=== PATIENT | male | born 1970 | race Two or more races ===

== ENCOUNTER 2018-10-11 08:37 | Emergency (ER) | payer OTHER ==
[~2018-10-11] VITALS: Ht 172.7 cm; Wt 90.7 kg
[2018-10-11 08:50] VITALS: BP 168/95
[2018-10-11] MEDS ORDERED: DIPHTH,PERTUSS(ACELL),TET TOX 0.5 ML DISP.SYRIN. VAX IM ONE (09:00)
[2018-10-11] MEDS ORDERED: NEOMY/BACITR/POLYMYXIN OINT PACKET. TP ONE (09:00)
[2018-10-11] MEDS ORDERED: fentaNYL PF VIAL 100 MCG/2 ML VIAL IV ONE (09:00)
--- NOTE | 2018-10-11 09:13 | PHYS DOC ---
Past Medical History Past Medical History: No Pertinent History Past Surgical History: Other Additional Past Surgical Histo: BACK Alcohol Use: Rarely Drug Use: None Adult General Chief Complaint Chief Complaint: LOWEREXTREMITY INJURY HPI HPI Patient is a 48 year old male who presents after sustaining any injury while at work prior to arrival. Patient states that a 2000 pound palate tipped over around eight o'clock this morning, hitting his lower back which caused him to fall forward and hit his face on another nearby palate. Patient states that the palate landed on his right lower extremity. Patient is complaining of nasal, right ankle, right knee, and right lower back pain since the injury occurred. Patient reports mild nausea but denies any vomiting. Denies loss of consciousness. Patient denies being on any anticoagulants. Tetanus status is not up to date. Patient states that he is able to bear weight on his right lower extremity but it is painful. Denies any other complaints. Review of Systems Review of Systems Constitutional: Denies fever or chills Eyes: Denies change in visual acuity or eye pain HENT: Denies nasal congestion or sore throat Respiratory: Denies cough or shortness of breath Cardiovascular: Denies chest pain or palpitations GI: Denies abdominal pain, vomiting, or diarrhea : Denies dysuria or hematuria Musculoskeletal: Denies joint pain. Reports back pain. Integument: Denies rash or skin lesions Neurologic: Denies focal weakness or sensory changes Complete systems were reviewed and found to be within normal limits, except as documented in this note. Current Medications Current Medications Current Medications Medications (Trade) Dose Ordered Sig/Kathie Start Time Stop Time Status Last Admin Dose Admin Diphtheria/ Tetanus/Acell Pertussis (Boostrix) 0.5 ml ONCE ONCE 10/11/18 09:00 10/11/18 09:03 DC 10/11/18 09:15 0.5 ML Fentanyl Citrate (Fentanyl 2ml Vial) 50 mcg 1X ONCE 10/11/18 09:00 10/11/18 09:04 DC 10/11/18 09:14 50 MCG Neomycin/ Polymyxin/ Bacitracin (Triple Antibiotic Ointment) 1 pkt 1X ONCE 10/11/18 09:00 10/11/18 09:04 DC 10/11/18 09:14 1 PKT Allergies Allergies Allergies Coded Allergies Type Severity Reaction Last Updated Verified No Known Drug Allergies 4/17/19 No Physical Exam Physical Exam Constitutional: Well developed, well nourished, no acute distress. HENT: Normocephalic, atraumatic, bilateral external ears normal, oropharynx moist, abrasion located across nasal bridge. Eyes: PERRL, EOMI, conjunctiva normal, no discharge. Neck: Normal range of motion, no tenderness, supple, no stridor. Cardiovascular:Heart rate regular rhythm, no murmur Lungs & Thorax: Bilateral breath sounds clear to auscultation. No wheezing Abdomen: Soft, no tenderness on palpation. Skin: Warm, dry, no rash. Back: No midline tenderness, no CVA tenderness. Tenderness of right paralumbar area on palpation. Extremities: No tenderness of right knee on palpation. Diffuse tenderness of the right foot, worse on sole off foot and dorsal lateral aspect. Full range of motion of right ankle. No erythema, ecchymosis, or edema noted. Distal pulses are present. Neurovascularly intact. Neurologic: Alert and oriented X3, normal motor function, normal sensory function, no focal deficits noted. Psychologic: Affect normal. Speech normal. Current Patient Data Vital Signs Vital Signs Date Time Temp Pulse Resp B/P (MAP) Pulse Ox O2 Delivery O2 Flow Rate FiO2 10/11/18 09:14 20 10/11/18 08:50 98.3 81 168/95 (119) 97 Room Air 98.3 EKG EKG [] Radiology/Procedures Radiology/Procedures PROCEDURE: FOOT RIGHT 3V 3 view study of the right foot Clinical indications: Blunt force trauma. Pain and swelling involving the top of the right foot. FINDINGS: No acute fracture or dislocation or lytic process is evident. Alignment is normal. IMPRESSION: No acute fracture. Electronically signed by: Marco Antonio Faye MD (10/11/2018 9:39 AM) [id number] PROCEDURE: CT HEAD AND CERVICAL SPINE WO CT MAXILLOFACIAL WO CONTRAST, CT HEAD AND CERVICAL SPINE WO Clinical indications: PALLET FELL ONTO NOSE AND ANKLE AT WORK. History of fall and pain. NONCONTRAST HEAD CT COMPARISON: None available. Technique: Noncontrast axial cross sectional scanning of the head was performed. PQRS compliance Statement One or more of the following individualized dose reduction techniques were utilized for this study: 1. Automated exposure control 2. Adjustment of the mA and/or kV according to patient size 3. Use of iterative reconstruction technique Findings: No acute intracranial hemorrhage or midline shift or mass-effect or hydrocephalus or extra-axial fluid collection is seen. No focal hypodense area or sulci effacement is seen to indicate an acute infarct or edema radiographically. No skull fracture or pneumocephalus is seen. No opacification of the mastoid sinuses or the middle ear cavities is seen. Nonenlarged posterior triangle lymph nodes are seen bilaterally measuring less than 1 cm in size. Impression: No acute intracranial abnormality is seen. CERVICAL SPINE CT STUDY WITHOUT CONTRAST TECHNIQUE: Noncontrast helical CT scanning of the cervical spine was performed. Multiplanar 2-D reconstructions were generated. FINDINGS: No acute fracture or discitis or lytic process is evident. Alignment is normal. No perching of facet joints is seen. IMPRESSION: No acute fracture. CT STUDY OF THE MAXILLOFACIAL BONES WITHOUT CONTRAST At technique: Noncontrast helical CT scanning of the maxillofacial bones was performed. Multiplanar 2-D reconstructions were generated. FINDINGS: No nasal bone fracture is evident. There is mild nasal septal deviation. No nasal spine fracture is evident. The maxilla and pterygoid plates are intact. Zygoma and zygomatic arch are intact on both sides. The orbits and orbital floors are intact on both sides. The mandible is intact. There is anterior subluxation of the mandibular condyle within the temporal fossa of both temporomandibular joints. There is mild mucosal thickening of the maxillary and ethmoid sinuses bilaterally but no air-fluid levels are seen. IMPRESSION: No acute fracture. Anterior subluxation of the mandibular condyle within the temporal fossa of both temporomandibular joints. 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 Electronically signed by: Marco Antonio Faye MD (10/11/2018 9:55 AM) [id number] PROCEDURE: CT MAXILLOFACIAL WO CONTRAST CT MAXILLOFACIAL WO CONTRAST, CT HEAD AND CERVICAL SPINE WO Clinical indications: PALLET FELL ONTO NOSE AND ANKLE AT WORK. History of fall and pain. NONCONTRAST HEAD CT COMPARISON: None available. Technique: Noncontrast axial cross sectional scanning of the head was performed. PQRS compliance Statement One or more of the following individualized dose reduction techniques were utilized for this study: 1. Automated exposure control 2. Adjustment of the mA and/or kV according to patient size 3. Use of iterative reconstruction technique Findings: No acute intracranial hemorrhage or midline shift or mass-effect or hydrocephalus or extra-axial fluid collection is seen. No focal hypodense area or sulci effacement is seen to indicate an acute infarct or edema radiographically. No skull fracture or pneumocephalus is seen. No opacification of the mastoid sinuses or the middle ear cavities is seen. Nonenlarged posterior triangle lymph nodes are seen bilaterally measuring less than 1 cm in size. Impression: No acute intracranial abnormality is seen. CERVICAL SPINE CT STUDY WITHOUT CONTRAST TECHNIQUE: Noncontrast helical CT scanning of the cervical spine was performed. Multiplanar 2-D reconstructions were generated. FINDINGS: No acute fracture or discitis or lytic process is evident. Alignment is normal. No perching of facet joints is seen. IMPRESSION: No acute fracture. CT STUDY OF THE MAXILLOFACIAL BONES WITHOUT CONTRAST At technique: Noncontrast helical CT scanning of the maxillofacial bones was performed. Multiplanar 2-D reconstructions were generated. FINDINGS: No nasal bone fracture is evident. There is mild nasal septal deviation. No nasal spine fracture is evident. The maxilla and pterygoid plates are intact. Zygoma and zygomatic arch are intact on both sides. The orbits and orbital floors are intact on both sides. The mandible is intact. There is anterior subluxation of the mandibular condyle within the temporal fossa of both temporomandibular joints. There is mild mucosal thickening of the maxillary and ethmoid sinuses bilaterally but no air-fluid levels are seen. IMPRESSION: No acute fracture. Anterior subluxation of the mandibular condyle within the temporal fossa of both temporomandibular joints. 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 Electronically signed by: Marco Antonio Faye MD (10/11/2018 9:55 AM) [id number] Course & Med Decision Making Course & Med Decision Making Patient is a 48 year old male who presents to the ED for right lower extremity and nasal pain. Nasal wound was thoroughly cleansed. Tetanus vaccination given. Patient treated with 50mcg Fentanyl in the ED for pain. Pertinent Labs and Imaging studies reviewed. (See chart for details). CT studies do not reveal any acute fracture. Foot x-ray is negative for fracture. Right foot/ankle wrapped in an merna bandage and patient was given crutches. Patient was instructed to take OTC Tylenol and ibuprofen for inflammation and discomfort. Patient stable for discharge with outpatient follow-up with PCP. Discussed findings and plan with patient and family, who acknowledge understanding and agreement. Dragon Disclaimer Dragon Disclaimer This electronic medical record was generated, in whole or in part, using a voice recognition dictation system. Departure Departure Impression: Primary Impression: Nose abrasion Additional Impression: Foot contusion Disposition: HOME, SELF-CARE Condition: STABLE Patient Instructions: Abrasion, [id number], Contusion, [id number], Crutch Use, [id number] Additional Instructions: Take over the counter ibuprofen and Tylenol for pain and discomfort. Do not soak your wound. You may shower. Clean wound daily with soap and water. Change dressing 2 times daily. Use over the counter antibiotic ointment with each dressing change. Problem Qualifiers Primary Impression: Nose abrasion Encounter type: initial encounter Qualified Codes: S00.31XA - Abrasion of nose, initial encounter Additional Impression: Foot contusion Encounter type: initial encounter Laterality: right Qualified Codes: S90.31XA - Contusion of right foot, initial encounter NARESH MANCERA DO Oct 11, 2018 09:13
--- NOTE | 2018-10-11 09:42 | RAD ---
3 view study of the right foot Clinical indications: Blunt force trauma. Pain and swelling involving the top of the right foot. FINDINGS: No acute fracture or dislocation or lytic process is evident. Alignment is normal. IMPRESSION: No acute fracture. Electronically signed by: Marco Antonio Faye MD (10/11/2018 9:39 AM) [id number]
--- NOTE | 2018-10-11 09:58 | RAD ---
CT MAXILLOFACIAL WO CONTRAST, CT HEAD AND CERVICAL SPINE WO Clinical indications: PALLET FELL ONTO NOSE AND ANKLE AT WORK. History of fall and pain. NONCONTRAST HEAD CT COMPARISON: None available. Technique: Noncontrast axial cross sectional scanning of the head was performed. PQRS compliance Statement One or more of the following individualized dose reduction techniques were utilized for this study: 1. Automated exposure control 2. Adjustment of the mA and/or kV according to patient size 3. Use of iterative reconstruction technique Findings: No acute intracranial hemorrhage or midline shift or mass-effect or hydrocephalus or extra-axial fluid collection is seen. No focal hypodense area or sulci effacement is seen to indicate an acute infarct or edema radiographically. No skull fracture or pneumocephalus is seen. No opacification of the mastoid sinuses or the middle ear cavities is seen. Nonenlarged posterior triangle lymph nodes are seen bilaterally measuring less than 1 cm in size. Impression: No acute intracranial abnormality is seen. CERVICAL SPINE CT STUDY WITHOUT CONTRAST TECHNIQUE: Noncontrast helical CT scanning of the cervical spine was performed. Multiplanar 2-D reconstructions were generated. FINDINGS: No acute fracture or discitis or lytic process is evident. Alignment is normal. No perching of facet joints is seen. IMPRESSION: No acute fracture. CT STUDY OF THE MAXILLOFACIAL BONES WITHOUT CONTRAST At technique: Noncontrast helical CT scanning of the maxillofacial bones was performed. Multiplanar 2-D reconstructions were generated. FINDINGS: No nasal bone fracture is evident. There is mild nasal septal deviation. No nasal spine fracture is evident. The maxilla and pterygoid plates are intact. Zygoma and zygomatic arch are intact on both sides. The orbits and orbital floors are intact on both sides. The mandible is intact. There is anterior subluxation of the mandibular condyle within the temporal fossa of both temporomandibular joints. There is mild mucosal thickening of the maxillary and ethmoid sinuses bilaterally but no air-fluid levels are seen. IMPRESSION: No acute fracture. Anterior subluxation of the mandibular condyle within the temporal fossa of both temporomandibular joints. 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 Electronically signed by: Marco Antonio Faye MD (10/11/2018 9:55 AM) [id number]
== END 2018-10-11 10:34 | disposition home or self-care (01) ==
LOC: ER 08:37
DX: S90.31XA Contusion of right foot, initial encounter (principal); S00.31XA Abrasion of nose, initial encounter; J34.2 Deviated nasal septum; M54.5 Low back pain; M25.561 Pain in right knee; W18.09XA Striking against other object with subsequent fall, initial encounter; Y93.89 Activity, other specified; Y92.89 Other specified places as the place of occurrence of the external cause; Y99.0 Civilian activity done for income or pay
CPT/HCPCS: 70450; 70486; 72125; 73630; 90471; 90715; 96374; 99284; J3010